=== PATIENT | male | born 1980 | race Hispanic/Latino ===

== ENCOUNTER 2017-01-30 06:04 | Day surgery (SDC) | payer OTHER ==
[2017-01-29 11:47] VITALS: BMI 35.5
[2017-01-30] MEDS ORDERED: Lactated Ringer's 1,000 ML IV ONE (06:47)
[2017-01-30] MEDS ORDERED: Midazolam 2 MG/2 ML VIAL ONE (07:21)
[2017-01-30] MEDS ORDERED: Propofol 10 mg/ml Inj (20 ML) ONE ×2 (07:21→10:16)
[2017-01-30] MEDS ORDERED: Rocuronium 10 mg/ml (5 ml) ONE (07:22)
[2017-01-30] MEDS ORDERED: Lidocaine 4% (Laryng-O-Jet) Kit MM ONE (07:26)
[2017-01-30] MEDS ORDERED: Lidocaine 2% w Epi 1:100,000 Inj IJ ONE ×2 (07:33→08:43)
[2017-01-30] MEDS ORDERED: Absorbable Gelatin Sponge Size 100 ONE (07:33)
[2017-01-30] MEDS ORDERED: Thrombin Topical 5,000 IU Spray Kit ONE (07:33)
[2017-01-30] MEDS ORDERED: Bacitracin Ointment 30 GM TUBE ONE (07:33)
[2017-01-30] MEDS ORDERED: Ropivacaine 0.5% 30ML IV ONE (07:53)
[2017-01-30] MEDS ORDERED: Sodium Chloride 0.9% 1,000 ML IV ONE (09:05)
[2017-01-30] MEDS ORDERED: Neostigmine Methylsulfate 3mg/3ml Syringe IV ONE (09:53)
[2017-01-30] MEDS ORDERED: HYDROmorphone 0.5 mg/0.5 ml ISec ONE (10:42)
[2017-01-30] MEDS ORDERED: Dexamethasone 4 mg/1 ml IVP PRN (10:42)
[2017-01-30] MEDS: HYDROmorphone 0.5 mg/0.5 ml ISec IVP PRN ×2 (10:45→10:55)
--- NOTE | 2017-01-30 11:08 | PCM.ANESB1 ---
Interscalene Block - Brachial Plexus Date of Procedure: 01/30/17 Anesthesiologist: Joaquin Pre-Procedure Diagnosis: Right rotator cuff tear Post-Procedure Diagnosis: Same Procedure Performed: Interscalene Block of Brachial Plexus Right - Procedure Interscalene Block of Brachial Plexus: This procedure was explained to the patient that it is for post-operative pain management. Consent was obtained after a thorough discussion with the patient regarding the benefits and possible complications of local anesthetic block of the Brachial Plexus at the Interscalene area. After surgery completed and the patient was extubated and brought to the PACU, block was performed after patient became oriented and responsive. Time out was held with the circulating nurse to confirm the correct surgery and appropriate block. After applying Oxygen by nasal cannula and administering IV Sedation, the patient's head was gently rotated away from the __right____operative shoulder and the anterior scalene groove was carefully palpated. The ultrasound transducer was then applied to the skin in the transverse plane and the brachial plexus was visualized lateral to the carotid artery and in between the anterior and middle scalene muscles. After identification,the anterior lateral portion of the neck was prepped with Betadine solution three times and Lidocaine 1% was injected subcutaneously for topical analgesia. At this point, a # 22 gauge Stimuplex 2 inches insulated needle was inserted into the interscalene groove and directed in a caudal and midline direction. The needle was inserted lateral to the ultrasound transducer in-plane towards the brachial plexus in a [id number] direction. Needle advancement was performed carefully under direct ultrasound visualization. Nerve stimulator was used and twitched of the affected extremity including the hand brachialis muscles, biceps and the deltoid was obtained at a current of __0.4___MA. After repeated negative aspiration,__20___cc of__.5%___,___Ropivacaine were injected. Under ultrasound guidance the local anesthetics were observed surrounding the roots of the brachial plexus. The needle was removed intact and sterile dressing was applied. The patient had stable vital signs, was conscious and in no apparent distress. The patient tolerated the interscalene block of the bracheal plexus well with stable vital signs.
[2017-01-30 11:19] VITALS: RESP 18
[2017-01-30] MEDS ORDERED: Oxycodone/Acetaminophen 5/325 mg Tab PO PRN (12:12)
--- NOTE | 2017-01-30 12:12 | PCM.SURG1 ---
Surgeon's Initial Post Op Note - Surgeon's Notes Surgeon: Gen Rosales MD Supervisor Lead Refinery: Pablo Daugherty PA-C Type of Anesthesia: General Endo, Other (Interscalene block ) Pre-Operative Diagnosis: Right shoulder labral tear Operative Findings: See op report Post-Operative Diagnosis: Same as pre-op dx Operation Performed: Right shoulder arthroscopy, debriedement, labral repair, subacromial decompression Specimen/Specimens Removed: None Estimated Blood Loss: EBL {In ML}: 5 Date of Surgery/Procedure: 01/30/17 Time of Surgery/Procedure: 08:00
[2017-01-30 12:52] VITALS: O2SAT 95
[2017-01-30 13:47] VITALS: BP 123/62; PULSE 110; TEMP 97.9
--- NOTE | 2017-02-09 12:15 | OP ---
Attending Physician: Dr. Gen Rosales.MD Aircraft Engine Mechanic Overhaul: CORKY Almeida Date of Procedure: 01/30/17 Preoperative diagnosis: (1)Right shoulder slap tear,(2) labral tear,(3) synovitis,(4) impingement, (5)AC joint arthritis Postoperative diagnosis: Right shoulder slap lesion, anterior labral tear, posterior labral tear, synovitis, subacromial bursitis, impingement, AC joint arthritis Procedure: Right shoulder anterior labral repair, right shoulder slap repair, posterior labral repair, synovectomy, bursectomy, subacromial decompression of acromioplasty, distal AC joint resection Anesthesia: General interscalene block Estimated blood loss was 15 cc. There were no complications. 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 Initially, he was managed with an extensive conservative care of management. His MRI had shown extensive tearing of the labrum. After patient failed conservative management, I recommended a right shoulder arthroscopy, labral repair, decompression, synovectomy. All of these are the indicated procedures. I reviewed the risks and benefits of the surgery with the patient in detail. The risks included, but are not limited to, bleeding, infection, neurovascular damage, continued pain, stiffness, failure to repair, need for further operations, blood clots, among others. Patient fully understood the risks and benefits and opted to proceed with the surgery. Procedure: Prior to surgery, patient was admitted to preoperative . In liberality, he was completely confirming patient's right shoulder as the correct problem site. Patient's right shoulder was (marked). He was brought to the operating table under general anesthesia. General anesthesia was interscalene block. The right shoulder was draped and prepped in a standard sterile manner. Preoperative exam: Patient was examined under anesthesia. He had full flexion to 170 degrees. External rotation is 60 degrees and internal rotation is 50 degrees. There was no instability noted. First, the timeout was completed and we confirmed the patient's right shoulder was the correct operative site. Using a 11 blade , a standard posterolateral portal was created. The camera was introduced into the glenohumeral joint using a spinal needle. An anterior portal was created and we proceeded with a diagnostic arthroscopy. There was extensive synovitis noted. There is a cartilage defect noted on the anterosuperior position. There was tearing of the labrum from an anterior ____ 3 clock position to posteriorly an 8 o'clock position. There was no bicep synovitis. Using the ____shaver, we proceeded with an extensive synovectomy, removing all the debride and tissue. We also proceeded with a chondroplasty on the glenoid and also a removal of loose bodies. Using a spinal needle on anterior, an anterolateral accessory portal was created and an 8 mm (cannula) was introduced into the joint. The bony component was debrided to promote a bleeding bed for the labral repair. We proceeded with a 4 anchor repair, starting from the 2 o'clock position, using a labral tape and a 3 mm knot was sutured ____ until a stable construct was achieved and the labrum was reduced to its near anatomic position. Next, the camera was placed in a subacromial space. There was extensive bursitis. Using an accessory anterolateral portal, extensive bursectomy was performed. There was a significant subacromial spur on the anterolateral portion , which was removed using a 4 mm abbey. Upon inspection of the AC joint, there was extensive arthritic changes noted and it was causing impingement. Using a ____shaver, AC joint was debrided of all the soft tissue and afterwards, using a 4 mm abbey, the distal course of the clavicle was excised to alleviate patient's symptoms of AC joint. Next, all the debridement was removed. All instruments were removed. Fluid was drained from the joint. The portals were closed using a 3-0 nylon suture. Sterile dressing was applied. Patient's arm was placed in an abduction sling. He was extubated and transferred to the stretcher and taken to the recovery room. His postoperative instruction included remaining in abduction sling, a follow-up of lab repair protocol. There were no complications with surgery. Angel Daugherty is a certified physician salon shampoo assistant whose participation in the procedure was crucial. She helped the patient with positioning, retraction of critical neurovascular structures, implant arm positioning, and successful completion of this surgery. Connie Blevins MD
== END 2017-01-30 15:12 | disposition home or self-care (01) ==
LOC: H.OPSURG 06:04
PROVIDERS: ATTEND Orthopaedic Surgery
DX: S43.431A Superior glenoid labrum lesion of right shoulder, initial encounter (principal); S43.491A Other sprain of right shoulder joint, initial encounter; M75.51 Bursitis of right shoulder; M19.111 Post-traumatic osteoarthritis, right shoulder; M13.811 Other specified arthritis, right shoulder; M65.811 Other synovitis and tenosynovitis, right shoulder; X50.9XXA Other and unspecified overexertion or strenuous movements or postures, initial encounter; X50.0XXA Overexertion from strenuous movement or load, initial encounter; Y99.0 Civilian activity done for income or pay; Y92.9 Unspecified place or not applicable; Y93.89 Activity, other specified

== ENCOUNTER 2017-09-11 06:18 | Day surgery (SDC) | payer OTHER ==
[2017-01-29 11:47] VITALS: BMI 35.5
[2017-09-11] MEDS ORDERED: Succinylcholine 200 mg/10 ml Inj IV ONE ×2 (07:31→11:57)
[2017-09-11] MEDS ORDERED: Propofol 10 mg/ml Inj (20 ML) ONE ×3 (07:31→12:24)
[2017-09-11] MEDS ORDERED: Midazolam 2 MG/2 ML VIAL ONE ×2 (07:49→11:56)
[2017-09-11] MEDS ORDERED: Lidocaine 4% (Laryng-O-Jet) Kit MM ONE (07:50)
[2017-09-11] MEDS ORDERED: Bupivacaine HCl 0.5% PF (10 ml) Inj ONE (07:53)
[2017-09-11] MEDS ORDERED: Ropivacaine 0.5% 30ML IV ONE ×2 (07:53→12:04)
[2017-09-11] MEDS ORDERED: Lidocaine 1% w Epi 1:100,000 Inj ONE (08:13)
[2017-09-11] MEDS ORDERED: EPINEPHrine 1 mg/ml (1:1000) Inj ONE (08:14)
[2017-09-11] MEDS ORDERED: Bupivacaine 0.5% Inj(30mL) ONE (08:14)
[2017-09-11] MEDS ORDERED: Lidocaine 1% Inj (20ml) ONE (08:14)
[2017-09-11] MEDS ORDERED: Lactated Ringer's 1,000 ML IV ONE ×2 (11:50→13:31)
[2017-09-11] MEDS ORDERED: Rocuronium 10 mg/ml (5 ml) ONE (11:57)
[2017-09-11] MEDS ORDERED: ePHEDrine 50 mg/ml Inj ONE (11:57)
[2017-09-11] MEDS ORDERED: Lidocaine/Epi 1% 1:100000 20 ML IJ ONE (12:56)
--- NOTE | 2017-09-11 14:14 | PCM.SURG1 ---
Surgeon's Initial Post Op Note - Surgeon's Notes Surgeon: Gen Rosales MD Learning Support Specialist: Pablo Daugherty PA-C Type of Anesthesia: General Endo Pre-Operative Diagnosis: Right Shoulder biceps tendon tear, labral tear Operative Findings: see op report Post-Operative Diagnosis: same as pre-op dx Operation Performed: Right shoulder arthroscopy, extensive debriedement, decompression, AC joint resection, mini open subpec biceps tenodesis Specimen/Specimens Removed: none Estimated Blood Loss: EBL {In ML}: 5 Date of Surgery/Procedure: 09/11/17 Time of Surgery/Procedure: 13:00
[2017-09-11] MEDS ORDERED: Oxycodone/Acetaminophen 5/325 mg Tab PO PRN (14:16)
[2017-09-11] MEDS ORDERED: Midazolam 2 MG/2 ML VIAL IVP PRN (14:25)
[2017-09-11] MEDS ORDERED: HYDROmorphone 0.5 mg/0.5 ml ISec IVP PRN (14:25)
--- NOTE | 2017-09-11 14:38 | PCM.ANESB1 ---
Interscalene Block - Brachial Plexus Procedure Performed: Interscalene Block of Brachial Plexus Right - Procedure Interscalene Block of Brachial Plexus: This procedure was explained to the patient that it is for post-operative pain management. Consent was obtained after a thorough discussion with the patient regarding the benefits and possible complications of local anesthetic block of the Brachial Plexus at the Interscalene area. The patient was brought to the Operating Room and standard monitors were applied. Time out was held with the circulating nurse to confirm the correct surgery and appropriate block. The patient's head was gently rotated away from the __right____operative shoulder and the anterior scalene groove was carefully palpated. The ultrasound transducer was then applied to the skin in the transverse plane and the brachial plexus was visualized lateral to the carotid artery and in between the anterior and middle scalene muscles. After identification,the anterior lateral portion of the neck was prepped with chloroprep solution three times and Lidocaine 1% was injected subcutaneously for topical analgesia. At this point, a # 22 gauge Stimuplex 2 inches insulated needle was inserted into the interscalene groove and directed in a caudal and midline direction. The needle was inserted lateral to the ultrasound transducer in-plane towards the brachial plexus in a [id number] direction. Needle advancement was performed carefully under direct ultrasound visualization. Nerve stimulator was used and twitched of the affected extremity including the hand brachialis muscles, biceps and the deltoid was obtained at a current of __0.3_MA. After repeated negative aspiration 5 cc of___0.5% Ropivacaine____were injected and this was followed with __15__cc of _0.5% ropivacaine_%. Under ultrasound guidance the local anesthetics were observed surrounding the roots of the brachial plexus. The needle was removed intact and sterile dressing was applied. The patient had stable vital signs, was conscious and in no apparent distress. The patient tolerated the interscalene block of the bracheal plexus well with stable vital signs, no signs of LAST, and was prepared for subsequent surgery.
[2017-09-11 16:14] VITALS: TEMP 98
[2017-09-11 18:02] VITALS: BP 130/70; PULSE 102; RESP 18; O2SAT 95
--- NOTE | 2017-09-12 02:06 | OP ---
PROCEDURE DATE: 09/11/2017 PREOPERATIVE DIAGNOSES: 1. Right shoulder failed SLAP repair. 2. Biceps tenosynovitis. 3. Synovitis. POSTOPERATIVE DIAGNOSES: 1. Right shoulder extensive synovitis. 2. Anterior capsule adhesions. 3. Failed superior labrum anterior and posterior repair. 4. Anterior posterior labral tear. 5. Grade 3 chondromalacia of the glenoid. 6. Partial supraspinatus tear. 7. Impingement. 8. Multiple subacromial adhesions. 9. Acromioclavicular joint arthritis. PROCEDURES: 1. Right shoulder arthroscopy. Complete synovectomy. 2. Extensive debridement. 3. Anterior capsule lysis of adhesions. 4. Distal clavicle excision. 5. Subacromial decompression with acromioplasty. 6. Mini-open subpectoral biceps tenodesis. 7. Chondroplasty of the glenoid, CPT 2999. 8. A 22 modifier previous superior labrum anterior and posterior surgery. SURGEON: Gen Rosales MD WOOL MERCHANT: Pablo Daugherty PA-C TYPE OF ANESTHESIA: General and interscalene block. ESTIMATED BLOOD LOSS: 5 mL COMPLICATIONS: None. SPECIMEN: None. CLOSURE: Primary. FLUIDS: See anesthesia sheet. ANTIBIOTICS: See anesthesia sheet. INDICATIONS: After failing a course of nonoperative therapy, the patient elected to undergo the above procedures. In the office the risks and possible complications of the shoulder arthroscopy were discussed in detail with the patient. These risks include, but are not limited to, continued pain, lack of motion, infection, vascular injury, and nerve injury including axillary nerve dysfunction, reflex sympathetic dystrophy, compartment syndrome, limb loss, and . The patient expressed an understanding of the risks and possible benefits of the procedure, and was also made aware of the alternatives to surgery. An informed consent was obtained, and was checked immediately preop. Procedure 1: The patient was correctly identified in the holding area and the right shoulder was marked with the surgeon's initials. The patient was transported to the operating room and placed in the supine position and general anesthesia and regional interscalene block was used, exam under anesthesia. A preoperative orthopedic examination revealed a passive range of motion of forward flexion to 160 degrees, 50 degrees of external rotation, and 120 degrees of abduction. Stability examination revealed; no instability was noted. Procedure 2: The patient was then placed in a beach chair position utilizing the beach chair positioning device. The patient's head was stabilized and the indicated upper extremity was prepped and draped in the standard surgical fashion. The anatomic structures were outlined with a skin marker, and 1% lidocaine with epinephrine was injected into the posterior, anterior, and lateral portal areas. A #21-gauge spinal needle was placed in the glenohumeral joint from the posterior portal and 10 mL of sterile saline was injected into the glenohumeral joint. Return of fluid indicated correct needle placement into the joint. The needle was then withdrawn and a #11 blade was used to make a 1-cm incision at the posterior portal site. Next, the arthroscopic blunt trocar was inserted into the glenohumeral joint. A #21-gauge spinal needle was placed through the anterior rotator interval, and the anterior portal was made with a #11 blade after the spinal needle was withdrawn. A 7-mm cannula was then inserted after the skin incision was made and the arthroscopic probe was then used to examine the internal structures of the glenohumeral joint. With the shoulder in abducted and externally rotated position, the articular surface of the rotator cuff was visualized. The arthroscope and probe were then switched from posterior to anterior. The posterior labrum, posterior capsule, and biceps anchor reflection was then inspected with the arthroscope in the anterior portal position. Examination of the glenohumeral joint revealed: 1. Extensive synovitis. 2. Anterior capsular adhesions. 3. Failed SLAP repair. 4. Anterior and posterior superior labral tear. 5. Grade 3 chondromalacia of the glenoid. 6. Partial supraspinatus tear. Using the probe, the labrum was circumferentially assessed for tear. Labral tears were note at superior, posterior, inferior and anterior labrum. Using the 4.0 motorized shaver and radiofrequency probe, the torn edges of the labrum were debrided until stable rim, preventing any further propagation. The radiofrequency device was introduced through the anterior portal and a radiofrequency anterior capsular rotator interval lysis of adhesions was performed. The anterior capsule was released to optimize range of motion. The radiofrequency device was used to provide hemostasis during this procedure. After the lysis of adhesions, passive range of motion measured forward flexion to 180 degrees, 60 degrees of external rotation, and 150 degrees of abduction. The full radius shaver was used to mechanically debride loose chondral edges of the side was glenoid, to a stable border. Extreme care was taken to not disrupt the adjacent chondral surface. The edge of the debrided area was probed to ensure chondral stability. The biceps pathology was addressed with biceps tenodesis. Upon careful arthroscopic evaluation of biceps tendon and its anchor site at the labrum, it was noted to be highly frayed and tears not amenable to repair. Biceps tenotomy was performed using the arthroscopic scissors. Afterwards, a small 2-cm incision was marked within the axillary fold and injected with 2 mL of 1% lidocaine with epinephrine. Skin incision was made using a 15 blade. Deeper dissection was carried out with scissors, and interval between pectoralis major tendon and coracobrachialis. Biceps tendon was identified sitting within the biceps groove. It was removed from the groove and found to be erythematous with intersubstance fraying and tearing. Torn edges of the tendon were incised using 15 blade and a 2.0 FiberLoop was used to whip stitch the tendon. The elbow was taken through flexion and extension to identify the appropriate site of tenodesis within the bicipital groove with proper tensioning of muscle belly. For tenodesis, we used the Arthrex bicortical button. The free ends of FiberLoop were loaded onto the metal cortical button. The diameter of the tendon was measured using the guide. Using appropriate drill bit, bicortical drill hole was made at the top of bicipital groove. Then, using the appropriate size reamer, as determined after measuring the width of biceps tendon, the near cortex was drilled approximately 1.5 cm in depth. The cortical button was loaded on the handle and passed through the drilled hole, then flipped at the far cortex. The biceps tendon was delivered into the drill hole and was sutured and secured with FiberLoop. Normal saline irrigation was used to remove all the debris and loose bodies. Skin edges were brought closer using 2.0 Vicryl sutures and closed 4.0 nylon sutures. Excessive glenohumeral synovitis was cleared with a 4.0 mm full radius shaver. The hypertrophic, erythematous synovium was resected. Hemostasis was maintained with the radiofrequency device. The 4.0 mm straight shaver was introduced through the anterior portal, and the partially torn supraspinatus lesion was debrided. Extreme care was taken to protect the chondral surfaces as well as the substance of the intact tendon. It was noted that greater than 50% of the tendon thickness remained after the debridement. At this point, the arthroscope was withdrawn from the glenohumeral joint and subacromial space was then entered using a blunt trocar. Gentle resistance sweeping against the coracoacromial ligament confirmed proper placement of the sheath and the arthroscope was inserted. A 1-cm incision was made at the inferolateral acromial area to create the lateral portal. Examination of the subacromial space revealed: 1. Impingement. 2. AC joint arthritis. 3. Multiple subacromial adhesions. Visualization of the subacromial space was difficult due to excessive bursitis. A bursectomy was performed using a combination of radiofrequency device as well as a 4.0-mm full radius motorized shaver. The soft tissue on the undersurface of the acromion was debrided utilizing the 4.0-mm full radius shaver and the radiofrequency device was used for hemostasis. At this point, the coracoacromial ligament was released with the radiofrequency device and the acromial branch of the thoracoacromial artery was coagulated with the same instrument. Subacromial decompression was performed with a 4.0-mm conical abbey using both the medial portal and the "cutting-block" precision acromioplasty technique from the posterior portal. The undersurface of the acromion was resected to a flat, smooth surface to allow unrestricted excursion of the rotator cuff. There were multiples adhesions noted within the subacromial space. Adhesions were found within the anterior, posterior, and lateral gutters. These adhesions were scarred into anterior and posterior portion of rotator cuff limiting range of motion. Using the 4.0-mm motorized shaver and radiofrequency probe, adhesions were debrided and removed. All the bleeding surfaces were coagulated. Afterwards, the shoulder was taken through range of motion and there was a notable improvement in range of motion and unrestrictive excursion of rotator cuff muscle and tendons. After adequate subacromial decompression, attention was then turned to the acromioclavicular joint which was localized using a 21-gauge spinal needle. A single 1-cm incision was placed on the superior aspect of the acromioclavicular joint, and the arthroscope and radiofrequency device were then inserted. Utilizing the radiofrequency device for hemostasis as well as tissue ablation, the perimeter of the distal clavicle was denuded of soft tissue. Care was taken to preserve the superoposterior soft tissue ligamentous attachments to the distal clavicle. A 4.0-mm conical abbey was introduced through the superior portal and 7 mm of distal clavicle was excised. A 1 mm of medial acromion was also resected. All resected bone was planed to a smooth, flat surface, and was checked by arthroscopic visualization from the superior AC joint portal. The subacromial space was then irrigated with sterile saline, and closure was instituted with sutures. A dressing was placed consisting of Xeroform, 4x4's, ABD pads, and tape. The patient was placed in a sling with an ABD pad in the axilla. The patient was then placed in a supine position and extubated without incident. The patient was transferred to the recovery room in stable condition, having tolerated the procedure well. Postoperatively, the patient will be maintained in an abduction sling, also provided with my rehab protocol, defining the restriction and sling use for 6-8 weeks. Followup in 6 weeks. During this procedure, I was assisted by Pablo Daugherty PA-C, who assisted in positioning the patient on the operating room table as well as transferring the patient from the operating room table to the recovery room stretcher. In addition, Pablo Daugherty PA-C, assisted me during the actual operative procedure by positioning the patient's extremity to allow for easier arthroscopic access to all areas of the joint. The presence of Pablo Daugherty PA-C, as my operative hair assistant, was medically necessary to ensure the utmost safety of the patient in the pre, intra-, and postoperative periods. Due to the patient's previous procedure performed in this area, this procedure was more difficult than a standard shoulder arthroscopy. This required extra time during prepping and draping, as well as an extended operative time. Because of the added complexity of the revision nature of this procedure. the length of the case was prolonged by 50%. Gen Rosales MD THAIS
== END 2017-09-11 18:00 | disposition home or self-care (01) ==
LOC: H.OPSURG 06:18
PROVIDERS: ATTEND Orthopaedic Surgery
DX: M75.41 Impingement syndrome of right shoulder (principal); J45.909 Unspecified asthma, uncomplicated; E78.5 Hyperlipidemia, unspecified; M75.01 Adhesive capsulitis of right shoulder; M65.811 Other synovitis and tenosynovitis, right shoulder; M94.211 Chondromalacia, right shoulder; M75.101 Unspecified rotator cuff tear or rupture of right shoulder, not specified as traumatic; M13.811 Other specified arthritis, right shoulder
CPT/HCPCS: 29821; 29825; 29826; C1776; J0171; J0330; J0690; J2001; J2250; J2405; J2704; J2765; J3010; J7030; J7120